=== PATIENT | female | born 1990 | race Caucasian/White ===

== ENCOUNTER 2019-12-09 14:55 | Emergency (ER) | payer BC ==
--- NOTE | 2019-12-09 15:57 | EDM.PDOC ---
ED HPI GENERAL MEDICAL PROBLEM - General Chief Complaint: Syncope Stated Complaint: MEDICAL VIA [facility] Time Seen by Provider: 12/09/19 15:30 Source of Information: Reports: Patient, EMS History Limitations: Reports: No Limitations - History of Present Illness INITIAL COMMENTS - FREE TEXT/NARRATIVE: 29-year-old female brought in by ambulance after a syncopal or seizure episode at a local business [place] from [facility]. She did bite her tongue and does admit that she is trying to abstain from alcohol after daily drinking fairly heavily for an extended period of time. She was in a local business, and went back out to her car to get her wallet and had about 10 seconds of very intense dj vu sensation, that was on the ground and confused. She had bit the lateral aspect of her tongue. She was not incontinent. She also has some scrapes on the anterior aspects of the lower legs. No one actually witnessed the first minute or 2 after she went down, just her confused state afterwards. No nausea or vomiting. No head injury or headache. No visual complaints. Onset: Sudden Duration: Hour(s): (1-1/2 hours ago) Associated Symptoms: Reports: Confusion, Malaise, Other (Feels shaky). Denies: Fever/Chills, Headaches, Nausea/Vomiting, Shortness of Breath mouth Pain Score (Numeric/FACES): 4 - Related Data Allergies Allergy/AdvReac Type Severity Reaction Status Date / Time No Known Allergies Allergy Verified 12/09/19 15:01 Home Meds: Home Meds NK [No Known Home Meds] 12/09/19 [History] Past Medical History Psychiatric History: Reports: Depression Social & Family History - Tobacco Use Smoking Status *Q: Current Every Day Smoker Years of Tobacco use: 10 Packs/Tins Daily: 0.5 - Caffeine Use Caffeine Use: Reports: Coffee, Energy Drinks, Soda, Tea - Alcohol Use Days Per Week of Alcohol Use: 7 Number of Drinks Per Day: 7 Total Drinks Per Week: 49 - Recreational Drug Use Recreational Drug Use: Yes Recreational Drug Type: Reports: Marijuana/Hashish Recreational Drug Use Frequency: Rarely ED ROS GENERAL - Review of Systems Review Of Systems: See Below Constitutional: Reports: Malaise. Denies: Fever, Chills HEENT: Reports: Other (She does have a tongue injury on the lateral aspect of the tongue). Denies: Vision Change Respiratory: Denies: Shortness of Breath Cardiovascular: Denies: Chest Pain GI/Abdominal: Denies: Abdominal Pain, Nausea, Vomiting : Reports: No Symptoms Musculoskeletal: Reports: No Symptoms Skin: Reports: Other (Some superficial abrasions on the lower legs, nontender and not bleeding) Neurological: Reports: Confusion. Denies: Headache - Physical Exam Exam: See Below Exam Limited By: No Limitations General Appearance: Alert, No Apparent Distress, Other (Appears anxious) Eye Exam: Bilateral Eye: Normal Inspection Head Exam: Atraumatic Neck: Normal Inspection, Supple, Non-Tender Respiratory/Chest: Lungs Clear Cardiovascular: Regular Rate, Rhythm GI/Abdominal: Soft, Non-Tender Neuro Exam (Abbreviated): Alert, Oriented, No Motor/Sensory Deficits Extremities: Other (Superficial abrasions on the lower extremities otherwise normal, no peripheral edema) Psychiatric: Anxious Course - Vital Signs Last Recorded V/S: Last Vital Signs Temp 97.6 F 12/09/19 15:07 Pulse 76 12/09/19 15:49 Resp 14 12/09/19 15:07 BP 138/98 H 12/09/19 15:49 Pulse Ox 97 12/09/19 15:07 - Re-Assessments/Exams Free Text/Narrative Re-Assessment/Exam: 12/09/19 17:30 Asked the patient for permission to draw some labs and hydrate her with saline but she refused any needles. She openly admitted to her alcohol abuse which is been chronic for the last 2 years. She did not want to go to an inpatient detox but would like help with avoiding alcohol over the next several days with medicine if possible. We agreed with a 5-day course of gabapentin 100 mg 3 times a day, I also talked with her sister who will watch her closely over the next few days. Departure - Departure Time of Disposition: 16:07 Disposition: Home, Self-Care 01 Clinical Impression: Alcohol withdrawal seizure without complication - Discharge Information Instructions: Alcohol Withdrawal Syndrome, [id number] Referrals: PCP,None [Primary Care Provider] - Forms: ED Department Discharge Care Plan Goals: Take 1 pill of gabapentin 3 times a day until gone, and abstain from alcohol and stay hydrated during that time. Return anytime if worsening or concerns, or you develop other physical problems or symptoms. Sepsis Event Note (ED) - Evaluation Sepsis Screening Result: No Definite Risk - Focused Exam Vital Signs: Vital Signs Temp Pulse Resp BP Pulse Ox 12/09/19 15:49 76 138/98 H 12/09/19 15:07 97.6 F 88 14 142/93 H 97 12/09/19 15:00 97.6 F 88 14 142/93 H 97
== END 2019-12-09 16:07 | disposition home or self-care (01) ==
LOC: JP.ED 14:55
DX: F10.239 Alcohol dependence with withdrawal, unspecified (principal); R56.9 Unspecified convulsions; S80.812A Abrasion, left lower leg, initial encounter; S80.811A Abrasion, right lower leg, initial encounter; X58.XXXA Exposure to other specified factors, initial encounter
CPT/HCPCS: 99283